=== PATIENT | male | born 1950 | race Caucasian/White ===

== ENCOUNTER → 2016-09-27 | Outpatient (CLI) | payer OTHER ==
[2016-09-27 16:21] LABS: Basophils % (A) 1 %; CH 31.6; CHCM 34.3; Eosinophils # (A) 0.1 k/uL (0-0.7); Eosinophils % (A) 2 %; HCT 44.7 % (39.0-53.0); HGB 14.7 gm/dL (13.0-17.5); Luc # (Auto) 0.11; Luc % (Auto) 2; Lymphocytes # (A) 1.2 k/uL (1.0-4.8); Lymphocytes % (A) 23 %; MCH 30.4 pg (25.0-35.0); MCHC 32.9 g/dL (31.0-37.0); MCV 92.4 fL (80.0-100.0); Mean Platelet Volume 7.1; Monocytes # (A) 0.3 k/uL (0-1.0); Monocytes % (A) 6 %; Neutrophils # (A) 3.5 k/uL (1.3-7.7); Neutrophils % (A) 67 %; RBC 4.84 m/uL (4.30-5.90); RDW 13.5 % (11.5-15.5); WBC 5.2 k/uL (3.8-10.6); WBC (Perox) 5.42
[2016-09-27 16:33] LABS: ALT 37 U/L (21-72); AST 24 U/L (17-59); Alkaline Phosphatase 54 U/L (38-126); Anion Gap 11 mmol/L; Blood Urea Nitrogen 27 mg/dL (9-20); Carbon Dioxide 29 mmol/L (22-30); Chloride 100 mmol/L (98-107); Cholesterol 171 mg/dL (<200); Glucose 107 mg/dL (74-99); HDL Cholesterol 40 mg/dL (40-60); Non-African American GFR(MDRD) 55 (>60 ml/min/1.73 sqM); Potassium 4.7 mmol/L (3.5-5.1); Sodium 140 mmol/L (137-145); Total Bilirubin 0.6 mg/dL (0.2-1.3); Total Protein 7.1 g/dL (6.3-8.2); Triglycerides 358 mg/dL (<150)
[2016-09-27 17:01] LABS: Prostate Specific Antigen 1.38 ng/mL (0.00-4.00)
== END | disposition home or self-care (01) ==
LOC: LABWHC1 15:41
PROVIDERS: ATTEND Family Medicine
DX: Z00.01 Encounter for general adult medical examination with abnormal findings (principal); Z12.5 Encounter for screening for malignant neoplasm of prostate
CPT/HCPCS: 36415; 80053; 80061; 84153; 84443; 85025

== ENCOUNTER 2017-11-16 06:30 | Day surgery (SDC) | payer OTHER ==
[2017-11-08 15:02] VITALS: BMI 36.3
[~2017-11-16 06:30] MED LIST: LACTATED RINGERS 1,000 ML IV SCH; SODIUM CHLORIDE 0.9% 1,000 ML IV SCH
[2017-11-16 07:29] VITALS: TEMP 98
[2017-11-16] MEDS ORDERED: LIDOCAINE 1% INJ 10MG/ML (20 ML MDV) ONE (07:37)
[2017-11-16] MEDS ORDERED: PROPOFOL 10 MG/ML 20 ML VIAL IV ONE (07:37)
[2017-11-16] MEDS ORDERED: BENZOCAINE SPRAY 1 CAN MUCOUS MEM ONE (07:39)
[2017-11-16] MEDS ORDERED: SODIUM CHLORIDE 0.9% 1,000 ML IV SCH (08:00)
--- NOTE | 2017-11-16 08:24 | ECHOT ---
TRANSESOPHAGEAL ECHOCARDIOGRAM INDICATION: Chronic atrial fibrillation. PROCEDURE NOTE: After obtaining informed consent, transesophageal echocardiogram was performed in left lateral position using an Omniplane probe. Local and IV sedation were obtained by the head of store operations. Patient tolerated the procedure well without any obvious immediate complications. FINDINGS: 1. There is no intracardiac thrombus within the left atrial appendage, left atrium, right atrium, right ventricle or left ventricle. 2. Left atrium appears enlarged. 3. Right atrium and right ventricle seen within normal limits. 4. Left ventricle has normal size and systolic function. 5. Mitral valve appears anatomically normal. There is mild to moderate central mitral regurgitation noted. 6. There is mild tricuspid regurgitation noted. 7. Aortic valve is free of stenosis or regurgitation. 8. Interatrial septum: There is no evidence of dhvr-ih-rdthv shunt by color-flow Doppler or bvzrh-yk-tkya shunt by agitated saline contrast study. 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 CONCLUSION: 1. No intracardiac thrombus. 2. Mild to moderate mitral regurgitation. PLAN: Patient will undergo cardioversion. MMODL / IJN: [id number] /
--- NOTE | 2017-11-16 08:30 | CE ---
CARDIAC ELECTROPHYSIOLOGY REPORT CARDIOVERSION PROCEDURE NOTE INDICATION: Chronic atrial fibrillation. After obtaining informed consent, patient underwent electrical cardioversion using 300 joules of synchronized DC current. He converted to sinus rhythm following a single shock. He is anesthetized by the specialist managers and he is adequately anticoagulated and is currently on Rythmol 150 t.i.d., which he is going to continue. ROXY / ANDRESN: [id number] /
[2017-11-16 09:01] VITALS: RESP 16
[2017-11-16 09:46] VITALS: BP 117/79; PULSE 58
--- NOTE | 2017-11-16 11:33 | CONS ---
CONSULTATION This is a 67-year-old gentleman that came to hospital for an outpatient LORETO, cardioversion. When he was ready to go home, he complained of enlarged lymph nodes in both the submandibular area. I went back, re-evaluated him. He does have an enlarged lymph nodes on both sides. I asked him to follow up with his primary care physician for further evaluation of the same. MMKORI / ANDRESN: [id number] /
== END 2017-11-16 10:50 | disposition home or self-care (01) ==
LOC: CATHCVL 06:30
PROVIDERS: ATTEND Internal Medicine Cardiovascular Disease
DX: I48.2 Chronic atrial fibrillation (principal); I08.1 Rheumatic disorders of both mitral and tricuspid valves; R00.1 Bradycardia, unspecified; I44.30 Unspecified atrioventricular block; R60.0 Localized edema; I10 Essential (primary) hypertension; I48.92 Unspecified atrial flutter; Z79.01 Long term (current) use of anticoagulants; Z79.899 Other long term (current) drug therapy; Z87.891 Personal history of nicotine dependence
CPT/HCPCS: 93312; 93320; 93325; 92960; J2001; J2704